=== PATIENT | female | born 1980 | race Caucasian/White ===

== ENCOUNTER 2017-07-01 09:48 | Observation (INO) | payer OTHER ==
[2017-07-01 10:31] LABS: % IMMATURE GRANULYOCYTES 1.6 % (0.0-1.1); ABSOLUTE IMMATURE GRANULOCYTES 0.09 10^3/uL (0.00-0.10); ABSOLUTE NRBC COUNT 0.04 10^3/uL (0-0.01); ADD DIFF? NO; ADD MORPH? NO; ADD SCAN? NO; ATYPICAL LYMPHOCYTE FLAG 0 (0-99); FRAGMENT RBC FLAG 0 (0-99); HEMATOCRIT 39.7 % (38.0-47.0); HEMOGLOBIN 14.1 g/dL (12.6-16.3); LEFT SHIFT FLG 10 (0-99); LIPEMIA HEMOLYSIS FLAG 90 (0-99); MEAN CELL HEMOGLOBIN 30.3 pg (27.9-34.1); MEAN CELL HEMOGLOBIN CONCENTR. 35.5 g/dL (32.4-36.7); MEAN CELL VOLUME 85.2 fL (81.5-99.8); NRBC-AUTO% 0.7 % (0.0-0.2); PLATELET CLUMPS FLAG 10 (0-99); RED BLOOD CELL COUNT 4.66 10^6/uL (4.18-5.33); RED CELL DISTRIBUTION WIDTH 11.7 % (11.5-15.2)
[2017-07-01 10:35] LABS: PLATELET COUNT 16 10^3/uL (150-400)
[2017-07-01 10:42] LABS: ALANINE AMINOTRANSFERASE 48 IU/L (9-52); ALBUMIN 3.6 g/dL (3.5-5.0); ALKALINE PHOSPHATASE 48 IU/L (38-126); ANION GAP 12 mEq/L (8-16); ASPARTATE AMINOTRANSFERASE 72 IU/L (14-46); BILIRUBIN,TOTAL 0.6 mg/dL (0.1-1.4); BILIRUBIN-CONJUGATED 0.1 mg/dL (0.0-0.5); BILIRUBIN-UNCONJUGATED 0.5 mg/dL (0.0-1.1); CALCIUM 9.5 mg/dL (8.5-10.4); CARBON DIOXIDE 25 mEq/l (22-31); CHLORIDE 105 mEq/L (97-110); CREATININE 0.9 mg/dL (0.6-1.0); GLOMERULAR FILTRATION RATE > 60; GLUCOSE 85 mg/dL (70-100); POTASSIUM 4.5 mEq/L (3.5-5.2); SODIUM 142 mEq/L (134-144)
[2017-07-01 10:54] LABS: PLATELET ESTIMATE DECREASED (ADEQ)
[2017-07-01] MEDS ORDERED: NS 1,000 ML IV ONE (11:07)
[2017-07-01] MEDS ORDERED: HYDROmorphONE/DILAUDID 1 MG/ML INJ IVP ONE (11:07)
[2017-07-01] MEDS ORDERED: DEXAMETHASONE 10 MG/ML VIAL IVP ONE (11:07)
[2017-07-01] MEDS ORDERED: ONDANSETRON 4 MG/2 ML VIAL IVP ONE (11:09)
--- NOTE | 2017-07-01 11:23 | EDPHY ---
H & P Time Seen by Provider: 07/01/17 10:19 HPI/ROS: HPI Headache, abdominal pain. 36-year-old female by private vehicle with significant other. She reports that she was exposed to a black mold several months ago. She has been undergoing "ozone " treatments to boost her immune system for this. She has been receiving IV infusion for what she call ozone therapy for the last couple of months. This also involves injections of glutathione and alpha lipoic acid. She also reports that she has a history of Heather-Rosales virus infection. She last had a CBC 2 months ago and this was apparently normal other than a leukocytosis according to her and her significant other. They have been treated down [facility] as well as here in [place] over the last month by a local physician. She states that she has had a worsening headache which she describes as global since Monday. She describes this as gradual in onset. No neck pain. She has not had a fever. She does complain of upper abdominal pain, worse on the left upper quadrant. Ongoing for 2-3 weeks. She has also had diarrhea and nausea with intermittent vomiting. Vomit described as nonbilious and nonbloody. ROS: Constitutional: No fever, no chills. As above. Eyes: No discharge. No changes in vision. ENT: No sore throat. No nasal congestion or rhinorrhea. Respiratory: No cough. No shortness of breath. Cardiac: No chest pain, no palpitations. Gastrointestinal: As above, no vomiting, no diarrhea. Genitourinary: No hematuria. No dysuria or increased frequency with urination. Musculoskeletal: No back pain. No neck pain. No myalgias or arthralgias. Skin: No rashes. Neurological: As above. No focal weakness or altered sensation. Past medical history: As above. Denies other significant past medical history. Social history: Nonsmoker. Here with her significant other. Denies alcohol. Physical Exam: General Appearance: Alert, she appears uncomfortable. She has a face mask covering her eyes. This patient is responding to questions appropriately and in full sentences. This patient appears well-hydrated and well-nourished. Eyes: Pupils equal and round and reactive to light, no pallor or injection. No lid edema, erythema or injection. She does have mild photophobia. No nystagmus. ENT, Mouth: Mucous membranes are moist. The pharyngeal tissues are unremarkable. No edema or swelling. No asymmetry suggestive of abscess. No erythema or exudates. Respiratory: There are no retractions, lungs are clear to auscultation with good air movement bilaterally. Cardiovascular: Regular rate and rhythm. No murmur. Gastrointestinal: Abdomen is soft with tenderness on palpation across the upper abdomen but worse over the left upper quadrant, no masses, bowel sounds normal. No focal tenderness at McBurney's point. No Geronimo sign. Neurological: Motor sensory function is grossly intact. Cranial nerves are normal. Gait is normal. Skin: Warm and dry, no rashes. Musculoskeletal: Neck is supple and nontender. No pain on flexion of the neck. Extremities are symmetrical. All joints range without pain or impingement. Psychiatric: No agitation. No depression. Database: EKG: Imaging: CT scan of head without contrast: Negative. Please see radiology report for further details. Results were discussed with staff radiologist Dr. James Lazar. CT scan of abdomen and pelvis with IV contrast: Negative except for some trace fluid around the gallbladder. No gallbladder wall thickening. Please see radiology report for further details. Results were discussed with staff radiologist Dr. James Lazar. Right upper quadrant ultrasound: Significant for probable acalculous cholecystitis. Some around the gallbladder, and gallbladder wall thickening. Procedures: Emergency department course: IV placed. Vital signs reviewed and are normal. She is afebrile. Initial platelet count is 16. She will be sent for CT imaging of the head to evaluate for potential bleeding as a source of her headache. She will also be sent for CT imaging of the abdomen and pelvis to evaluate for splenic pathology given her abdominal pain, history of Heather-Rsoales virus and low platelet count. She endorses. She was started on IV normal saline with 1 L to be given over the next hour. 11:50 a.m., spoke with precinct captain oncologist Dr. Appiah. Case discussed in detail. His feeling her thrombocytopenia is ITP until proven otherwise. He asked that we admit this patient to the hospitalist service and he will consult. 1:30 p.m., results of her diagnostic tests were discussed with her and her significant other. Plan for admission discussed. All of their questions were answered. 1:40 p.m., spoke with general surgeon, Dr. Bocanegra regarding this patient. Considering her thrombocytopenia, no plan for operative management for cholecystitis at this time. Antibiotics will be initiated by the hospitalist service under his direction. Likely Levaquin and metronidazole. This will also cover for possible urinary tract infection. 1:45 p.m., spoke with hospitalist. Case discussed in detail. Patient admitted to the hospitalist service in stable condition. She does not meet criteria for emergent platelet transfusion at this time. Differential Diagnosis: The differential diagnosis on this patient includes but is not limited to ITP, Heather-Rosales virus infection, thrombocytopenia, migraine headache, cholecystitis , urinary tract infection. Subarachnoid hemorrhage, meningitis, encephalitis, temporal arteritis, cavernous sinus thrombosis, sagittal sinus thrombosis, splenic sequestration, splenic rupture unlikely. This represents a partial list of diagnoses considered. These considerations are based on history, physical exam, past history, reassessment and diagnostic testing. Smoking Status: Never smoked Constitutional: Initial Vital Signs Temperature (C) 36.5 C 07/01/17 09:51 Heart Rate 72 07/01/17 09:51 Respiratory Rate 16 07/01/17 09:51 Blood Pressure 109/74 07/01/17 09:51 O2 Sat (%) 92 07/01/17 09:51 O2 Delivery Mode Room Air Allergies/Adverse Reactions: No Known Allergies Allergy (Unverified 07/01/17 09:55) Home Medications: Medication Instructions Recorded Herbals/Supplements -Info Only 1 ea PO DAILY 07/01/17 Ondansetron Odt [Zofran Odt 4 mg 4 mg PO Q4HRS PRN #40 tab 07/02/17 (*)] levOFLOXACIN [Levofloxacin] 750 mg PO DAILY #14 tablet 07/02/17 metroNIDAZOLE [Metronidazole] 500 mg PO Q8 #42 tablet 07/02/17 Medical Decision Making - Data Points Laboratory Results: Laboratory Results 07/01/17 10:20 07/01/17 10:20 Medications Given: Discontinued Medications Acetaminophen (Tylenol) 650 mg PO Q4HRS PRN PRN Reason: Pain, Mild/Fever, Can Take PO Stop: 12/28/17 14:03 Last Admin: 07/02/17 10:26 Dose: 650 mg Dexamethasone (Decadron Injection) 10 mg IVP EDNOW ONE Stop: 07/01/17 11:08 Last Admin: 07/01/17 11:32 Dose: Not Given Hydromorphone HCl (Dilaudid) 0.5 mg IVP EDNOW ONE Stop: 07/01/17 11:08 Last Admin: 07/01/17 11:38 Dose: Not Given Hydromorphone/Sodium Chloride (Hydromorphone) 0.2 mg IVP Q2HRS PRN PRN Reason: Pain, Severe Unable to Take PO Stop: 07/11/17 15:07 Last Admin: 07/02/17 08:00 Dose: 0.2 mg Sodium Chloride (Ns) 1,000 mls @ 0 mls/hr IV EDNOW ONE; Wide Open PRN Reason: Protocol Stop: 07/01/17 11:08 Last Admin: 07/01/17 11:29 Dose: 1,000 mls Dexamethasone 40 mg/ Dextrose 54 mls @ 216 mls/hr IV DAILY16 KATE Last Admin: 07/01/17 17:50 Dose: Not Given Ondansetron HCl (Zofran) 4 mg IVP EDNOW ONE Stop: 07/01/17 11:10 Last Admin: 07/01/17 11:29 Dose: 4 mg Ondansetron HCl (Zofran) 4 mg IVP Q4HRS PRN PRN Reason: Nausea/Vomiting, Can't Take PO Stop: 12/28/17 14:03 Last Admin: 07/02/17 10:36 Dose: 4 mg Departure - Departure Disposition: [facility] Acute Clinical Impression: Thrombocytopenia, Headache, Acalculous cholecystitis, Possible urinary tract infection Condition: Fair
[2017-07-01 11:27] LABS: INR 0.99 (0.83-1.16); PROTIME(PATIENT) 13.3 SEC (12.0-15.0)
[2017-07-01 11:28] LABS: APTT 37.7 SEC (23.0-38.0)
[2017-07-01] MEDS ORDERED: IOPAMIDOL (ISOVUE-300) 100 ML BTL ONE (11:59)
--- NOTE | 2017-07-01 12:06 | CPEKG ---
Heart Rate: 41 RR Interval: 1463 P-R Interval: 144 QRSD Interval: 72 QT Interval: 524 QTC Interval: 433 P [place]: -84 QRS [place]: 78 T Wave [place]: 64 EKG Severity - ABNORMAL ECG - EKG Impression: ECTOPIC ATRIAL BRADYCARDIA EKG Impression: ABNORMAL Q SUGGESTS ANTERIOR INFARCT EKG Impression: ABNORMAL T, CONSIDER ISCHEMIA, ANTERIOR LEADS Electronically Signed By: Kishore Matos 01-Jul-2017 15:22:51
[2017-07-01 13:23] LABS: COLOR LT. YELLOW; LEUKOCYTE ESTERASE,URINE TRACE (NEGATIVE)
[2017-07-01 13:24] LABS: NITRITE,URINE POSITIVE (NEGATIVE)
[2017-07-01 13:34] LABS: BACTERIA 2+ /hpf (NONE SEEN); MUCUS 1+ /lpf (NONE-1+); RBC,URINE NONE SEEN /hpf (0-3)
[2017-07-01] MEDS ORDERED: ONDANSETRON DISINTEGRATING 4 MG TAB PO PRN (14:04)
[2017-07-01] MEDS ORDERED: ACETAMINOPHEN 325 MG TAB PO PRN (14:04)
[2017-07-01] MEDS: HYDROmorphone HCL/NS/PF 0.4 MG/2 ML SYR IVP PRN ×2 (15:25→22:06)
[2017-07-01] MEDS: ONDANSETRON 4 MG/2 ML VIAL IVP PRN ×2 (15:25→22:05)
[2017-07-01] MEDS ORDERED: *PHM DO NOT USE-LORazepam 1 MG/ML IV NEWBORN SYR IV PRN (15:58)
[2017-07-01] MEDS ORDERED: DEXAMETHASONE 10 MG/ML VIAL IV SCH (16:00)
[2017-07-01] MEDS ORDERED: DEXAMETHASONE 40 MG in D5W 50 ML IV SCH (16:00)
--- NOTE | 2017-07-01 16:02 | GHP ---
[f rep st] HISTORY AND PHYSICAL DATE OF ADMISSION: 07/01/2017 CHIEF COMPLAINT: Headache with abdominal pain. HISTORY OF PRESENT ILLNESS: The patient is a 36-year-old female who presents to the emergency room t delores with complaints of abdominal pain as well as a severe headache. The patient has been undergoing infusion treatments for black mold exposure. She was having a good week this week until her infusio n which was 3 days ago. After her infusion, she became violently ill with nausea and vomiting, as we ll as diarrhea. She had an excruciating headache which she states is the worst headache of her life and became very dehydrated. She returned to her physician the following day and received IV hydratio n. Since that time, she has remained ill feeling and continues to have abdominal pain with headache. She had not had any lab work to coincide with her infusions. Her last lab work was obtained [facility] 2 months ago which she tells me was within normal limits. The patient is originally from [place], [place], but has been visiting [place] and received her last infusion here. She denies any fevers, sweats or night chills. She denies any neck pain. She denies any shortness o f breath or dyspnea. REVIEW OF SYSTEMS: A comprehensive 10-point review of systems is negative other than noted in the HP I. PAST MEDICAL HISTORY: Sohail's, Heather-Rosales virus. PAST SURGICAL HISTORY: None. SOCIAL HISTORY: The patient is a nonsmoker. She denies any alcohol or drugs. Again she originally resides in [place] and is visiting long-term in [place] with her significant other. PHYSICAL EXAMINATION: GENERAL: The patient is alert. VITAL SIGNS: Afebrile at 36.6, pulse is 43, respiratory rate is 18, blood pressure is 108/78. She is saturating 92% on room air. HEENT: Normoc ephalic, atraumatic. Mucosal membranes are moist. Pupils equal, round, reactive to light. NECK: S upple. LUNGS: Clear to auscultation bilaterally. No rhonchi or wheezes noted. CARDIOVASCULAR: Re gular rate and rhythm. No gallop or murmur appreciated. GASTROINTESTINAL: Abdomen: Bowel sounds a re positive, soft. Mildly tender to palpation. No guarding or rigidity appreciated. EXTREMITIES: Are within normal limits. There is no clubbing or cyanosis noted. SKIN: Without rashes or lesions. NEUROLOGIC: The patient is focally intact. HOME MEDICATIONS: 1. Herbal supplements. 2. Excedrin. FAMILY HISTORY: Notable for autoimmune disorders in her sister and mother. LABORATORY EVALUATION: Platelet count is 16, AST is elevated at 72. The patient's urine is abnormal . RADIOLOGICAL STUDIES: 1. CT of the abdomen notes fluid near the gallbladder as well as multiple hepatic lesions with possi ble hemangiomas. 2. Abdominal ultrasound also notes abnormal gallbladder wall thickening with 3 liver masses suggesti ng hemangiomas. 3. EKG was noted for bradycardia. 4. CT of the head with no acute findings. ASSESSMENT/PLAN: A 36-year-old female who presented to the emergency room with complaints of headach e and abdominal pain. 1. Abdominal pain. The etiology of this is unclear at this time. CT of the abdomen, as well as ult rasound, demonstrated abnormal gallbladder wall thickening as well as liver hemangiomas. An MRI has been ordered as well as a surgery consult. We will continue to evaluate the patient during this hosp italization. 2. Thrombocytopenia. Hematology has been consulted with regard to this condition. There is no need for transfusion at this time. We will follow this closely. 3. History of mold exposure. Again the patient is receiving some sort of infusion in the outpatient setting. I have recommended that she discontinue these infusions. We will attempt to obtain more i nformation regarding what the patient as being infused with. 4. Dysuria. Urine culture will be sent. The patient has not been initiated on antibiotic therapy a t this time. 5. Bradycardia. This is likely the patient's baseline; however, we will monitor closely. EKG is no amanda for bradycardia. DISPOSITION: The patient will be admitted to observation status. We will await further consultation s and radiological imaging. Her admission status can be adjusted as needed during this hospital course. /[id number]/MODL
[2017-07-01] MEDS ORDERED: LORazepam 2 MG/ML INJ IVP PRN (16:04)
[2017-07-01 17:18] LABS: GAMMA-GLUTAMYLTRANSFERASE 21 IU/L (12-43)
--- NOTE | 2017-07-01 22:08 | GCON ---
[f rep st] CONSULTATION REFERRING PHYSICIAN: Kishore Matos DO REASON FOR CONSULTATION: Abdominal pain. HISTORY OF PRESENT ILLNESS: This is a 36-year-old woman who presented to the emergency room after se veral days of abdominal pain and severe headache. The patient reports that she has been treated with infusion therapy for black mold over the last several months. Recently moved back to [place] from [place], [place], has been receiving [place]an, alpha lipoic acid, and glutathione injections. After an inf usion on Monday, the patient became violently ill, nausea, vomiting, diarrhea with a severe headac he relieved only by screaming. Her pain in her abdomen was located in the right upper quadrant witho ut radiation. The patient denies any other constitutional symptoms. She had recently been in [place] 2 weeks ago, but she was feeling better than she had been in the past until now. PAST MEDICAL HISTORY: Sohail's thyroiditis, Heather-Rosales virus. PAST SURGICAL HISTORY: None. REVIEW OF SYSTEMS: Significant for her ongoing mold and Sohail's, but otherwise negative. SOCIAL HISTORY: The patient denies alcohol, drug, or tobacco use. MEDICATIONS: Herbal medications, Excedrin for pain, as well as the infusions that she has been getti ng. FAMILY HISTORY: Notable for autoimmune disorders in her sister and mother. Otherwise, noncontributo ry. EXAM: GENERAL: Today, the patient is alert, oriented to person, place, and time. VITAL SIGNS: She is afebrile at 36.6, heart rate is 50, respiratory rate is 16, with a blood pressure 108/78, saturat ing adequately on room air. HEENT: Normocephalic, atraumatic. She has anicteric sclerae. NECK: S upple. No JVD, thyromegaly. LUNGS: Clear bilaterally. HEART: Regular heart tones, S1 and S2. AB DOMEN: Tender in the right upper quadrant with a mild Geronimo's sign. Pain on inspiration with palpa tion of that side. She has no scars. She has no hepatosplenomegaly. No guarding or rebound tendern ess. EXTREMITIES: 2+ over 2+ pulses radial and dorsalis pedis, posterior tibial. No peripheral tato ma. SKIN: No rashes. NEURO: Nonfocal neurologic exam. LABORATORY STUDIES: Significant for a platelet count of 16, AST is 72, which is above normal. Urina lysis shows elevated white blood cells, leukocytosis sites without nitrates. CT scan of the abdomen and pelvis shows hemangiomas of the liver, and she also has thickening of the gallbladder wall demonstrating possible acute cholecystitis. MRI is pending. I will discuss this wi th the hospital staff. ASSESSMENT: 1. A 36-year-old woman with abdominal pain, unclear etiology. Await MRI. Possible need for cholecy stectomy. Risks, benefits, and alternatives to this have been outlined to the patient and her signif icant other. The patient realizes that nonoperative care is also an option. She does not have leuko cytosis, so antibiotics are unwarranted. Bowel rest at this time and hydration would be used, as wel l as serial exams. 2. She has severe thrombocytopenia, possible idiopathic thrombocytopenic purpura. Hematology consul t is pending. 3. Dysuria. The patient does not have an elevation of white blood cell count. She is afebrile. PLAN: I will discuss this with her primary care team prior to any further intervention. The patient and her significant other seemed happy with this plan. /[id number]/MODL
--- NOTE | 2017-07-01 22:18 | GCON ---
[f rep st] CONSULTATION HEMATOLOGY/ONCOLOGY CONSULTATION DATE OF CONSULTATION: 07/01/2017 REASON FOR CONSULTATION: Thrombocytopenia. HISTORY OF PRESENT ILLNESS: The patient is a 36-year-old woman who reports that she has recurrent Heather Bar virus due to exposure to toxic black mold 2 years ago. She has been undergoing alternative therapies with ozone, alpha- lipoic acid, glutathione, coffee enemas. She is also on a gluten and dairy- free diet. She recently came out to the [facility] about 2 weeks ago and was feeling pretty well. She underwent an ozone and ALA injection on Monday and afterwards had vomiting, diarrhea, severe migraines, and associated chills. Over the last few days, she has had pain in the right upper quadrant and nausea. She denies any bruising or bleeding. Her last menstrual period was about 2 weeks ago and it was fairly typical, although she did have a lot of pain , which happens occasionally. She went to the emergency room for evaluation and on workup she was found to have a normal white count and hemoglobin. Her platelet count was 16,000 and a smear estimate will show that it was decreased. ALLERGIES: No known drug allergies. MEDICATIONS: Home medications include the multiples herbs and supplements and Excedrin. PAST MEDICAL HISTORY: Chronic illnesses: Really none. PAST SURGICAL HISTORY: Negative. SOCIAL HISTORY: She uses marijuana, but denies alcohol, IV drug abuse, or tobacco. FAMILY HISTORY: Both her parents are alive. No history of blood problems, although there is a family history of Sohail's. OBSTETRICAL HISTORY: She has been twice with 2 therapeutic abortions. REVIEW OF SYSTEMS: A 10-point review of systems was performed. Pertinent positives are per HPI, otherwise negative. PHYSICAL EXAM: VITAL SIGNS: Temperature is 36.6, pulse is 43, blood pressure is 108/78. GENERAL: She is mildly ill-appearing, but in no distress. HEENT: Sclerae nonicteric. Extraocular muscles are intact. Oral mucosa is without mucositis, petechiae, or purpura. LUNGS: Clear. CARDIAC: Heart rate is a little slow, but regular. ABDOMEN: Soft without splenomegaly. She is tender in the right upper quadrant. LYMPHATICS: Elizabeth exam reveals no peripheral lymphadenopathy. SKIN: Reveals no petechiae, purpura. NEUROLOGICAL: Grossly intact. IMAGIN. CT of her head showed no bleeds. 2. Ultrasound of her abdomen showed some hemangiomas in the liver and gallbladder wall thickening with pericholecystic fluid that could be related to acalculous cholecystitis. 3. Abdominal CT also showed the hemangiomas and pericholecystic fluid with possible cholecystitis. LABORATORY DATA: White count 5700 with an ANC of 2900, hemoglobin is 14.1, platelet count is 16,000. Coagulation studies are normal. Chemistries: AST is up slightly, ALT is normal, total bilirubin and alkaline phosphatase are normal. Beta-hCG is negative. UA showed positive nitrites and white cells and 2+ bacteria. Culture is pending. Heather Bar virus testing is pending. IMPRESSION: 1. Severe thrombocytopenia. 2. Possible acute cholecystitis. 3. Urinary tract infection. The most likely cause of her severe thrombocytopenia with an otherwise normal blood count is idiopathic thrombocytopenic purpura. It is unlikely due to disseminated intravascular coagulation or sepsis with normal coagulation studies and relatively normal vital signs. While there are medications that can cause isolated thrombocytopenia, they are relatively rare and generally resolve with stopping the drugs. She has been on some unusual medications, but none of them have been clearly associated with thrombocytopenia, but not entirely known. Although she is hoping to avoid surgery, she might need surgery in the next few days, so I have recommend we treat the thrombocytopenia , and we discussed the different options, including IVIG (which can treat it faster, but not put it into remission) versus steroids. Steroids may take a little bit longer, but more likely to put it and keep it in remission. We also discussed prednisone and dexamethasone. She did not have a very good experience with prednisone and liked the idea of dexamethasone being over a shorter time period. I will start her with dexamethasone 40 mg daily for 4 days. We will follow along with you while in the hospital. /[id number]/MODL MTDD
[2017-07-02] MEDS: HYDROmorphone HCL/NS/PF 0.4 MG/2 ML SYR IVP PRN ×2 (03:54→08:00)
[2017-07-02 04:12] LABS: % IMMATURE GRANULYOCYTES 1.5 % (0.0-1.1); ABSOLUTE IMMATURE GRANULOCYTES 0.12 10^3/uL (0.00-0.10); ABSOLUTE NRBC COUNT 0.04 10^3/uL (0-0.01); ADD DIFF? NO; ADD MORPH? NO; ADD SCAN? NO; ATYPICAL LYMPHOCYTE FLAG 30 (0-99); FRAGMENT RBC FLAG 0 (0-99); HEMATOCRIT 37.8 % (38.0-47.0); HEMOGLOBIN 13.4 g/dL (12.6-16.3); LEFT SHIFT FLG 10 (0-99); LIPEMIA HEMOLYSIS FLAG 90 (0-99); MEAN CELL HEMOGLOBIN 29.8 pg (27.9-34.1); MEAN CELL HEMOGLOBIN CONCENTR. 35.4 g/dL (32.4-36.7); MEAN CELL VOLUME 84.2 fL (81.5-99.8); MEAN PLATELET VOLUME 13.7 fL (8.7-11.7); NRBC-AUTO% 0.5 % (0.0-0.2); PLATELET CLUMPS FLAG 10 (0-99); RED BLOOD CELL COUNT 4.49 10^6/uL (4.18-5.33); RED CELL DISTRIBUTION WIDTH 11.4 % (11.5-15.2)
[2017-07-02 04:21] LABS: PLATELET COUNT 24 10^3/uL (150-400)
[2017-07-02 04:50] LABS: PLATELET ESTIMATE DECREASED (ADEQ)
[2017-07-02 07:31] VITALS: O2SAT 90
[2017-07-02 07:32] VITALS: BP 132/90; PULSE 114; RESP 18; TEMP 97.3
[2017-07-02] MEDS ORDERED: Herbals/Supplements -Info Only PO SCH (09:00)
--- NOTE | 2017-07-02 09:40 | SOAPPROG ---
SOAP Progress Note Assessment/Plan: Assessment/Plan: Cholecystitis with normal WBC and ITP Plt 24 this am Anticipate steroid per hematology Nausea better tolerated diet RRR CTA Abd soft nt Await on cholecystectomy decision for now. Treat ITP If symptomatic after optimization then lap madhu 07/02/17 09:38 Objective: Vital Signs Temp Pulse Resp BP Pulse Ox 36.3 C 114 H 18 132/90 H 90 L 07/02/17 07:30 07/02/17 07:30 07/02/17 07:30 07/02/17 07:30 07/02/17 07:28 Laboratory Results 07/02/17 03:48 07/01/17 07/02/17 07/03/17 05:59 05:59 05:59 Intake Total 1000 Balance 1000 PT 13.3 SEC (12.0-15.0) 07/01/17 10:10 INR 0.99 (0.83-1.16) 07/01/17 10:10 ICD10 Worksheet Patient Problems: Problems Problem Status Onset Headache Acute Thrombocytopenia Acute
[2017-07-02 09:48] LABS: ALBUMIN 3.3 g/dL (3.5-5.0); BILIRUBIN,TOTAL 0.6 mg/dL (0.1-1.4); BILIRUBIN-CONJUGATED 0.2 mg/dL (0.0-0.5); BILIRUBIN-UNCONJUGATED 0.4 mg/dL (0.0-1.1); TOTAL PROTEIN 5.6 g/dL (6.3-8.2)
[2017-07-02] MEDS: ONDANSETRON 4 MG/2 ML VIAL IVP PRN (10:36)
--- NOTE | 2017-07-02 11:37 | SOAPPROG ---
SOAP Progress Note Assessment/Plan: * Thrombocytopenia: suspect ITP. Counts a little better than yesterday without therapy and no bleeding. Surgery up in the air. Since she is asymptomatic, we can monitor the platelets and treat if drop or symptoms develop. Can also treat if needs surgery. These can be followed outpatient and if she were to go home, would want her back in our office this week to check counts. I prefer to treat with steroids since IVIg is temporary but the latter can be used for more immediate effect if she needs a procedure. * UTI?: asymptomatic. recommend repeating ua * Cholecystitis: followed by surgery conservatively right now; she may need surgery in near future. Subjective: Last night, patient refused steroids favoring IVIg. No therapy given yet. RUQ pain is better but the headache is worse. No bleeding. Objective: Vital Signs Temp Pulse Resp BP Pulse Ox 36.3 C 114 H 18 132/90 H 90 L 07/02/17 07:30 07/02/17 07:30 07/02/17 07:30 07/02/17 07:30 07/02/17 07:28 Laboratory Results 07/02/17 03:48 07/01/17 07/02/17 07/03/17 05:59 05:59 05:59 Intake Total 1000 Balance 1000 PT 13.3 SEC (12.0-15.0) 07/01/17 10:10 INR 0.99 (0.83-1.16) 07/01/17 10:10 Laboratory Tests 07/01/17 07/02/17 10:20 03:48 WBC 5.70 8.00 Hgb 14.1 13.4 Plt Count 16 L* 24 L* Physical Exam - Physical Exam General Appearance: no apparent distress EENT: pharynx normal Respiratory: lungs clear Cardiac/Chest: regular rate, rhythm Abdomen: No splenomegaly Lymphatic: no adenopathy ICD10 Worksheet Patient Problems: Problems Problem Status Onset Headache Acute Thrombocytopenia Acute
[2017-07-02 12:01] LABS: % SATURATION 28 % (20-55); TOTAL IRON BINDING CAPACITY 296 ug/dL (260-490)
--- NOTE | 2017-07-02 14:04 | ASDISCHSUM ---
Discharge Information Plan Status:Home with No Needs Medically Cleared to Leave:07/01/2017 Discharge Date:07/02/2017 02:02 PM CM D/C Disposition:Home, Routine, Self-Care ADT D/C Disposition:Home, Routine, Self-Care Projected Discharge Date:07/02/2017 02:00 PM Transportation at D/C:Friend Discharge Delay Reason: Follow-Up Date:07/02/2017 02:00 PM Discharge Slot:2 - 12:01 pm - 18:00 pm Final Diagnosis:AMES, Abdominal pain Placement Information Patient Contact Information Contact Name:TARYN Relationship:Other Address:[address] Work Phone: Jeni:BELIA Gao Phone: State/Zip Code:[place] [address] Email: Financial Information Financial Class:HMO and PPO Plans Primary Plan Desc:[employer] MARGIE DIEGO Primary Plan Number:[id number] Secondary Plan Desc: Secondary Plan Number: Assessment Information Case Management Discharge Plan Note Case Management Discharge Discharge Order Complete? Answers: Yes Patient to Obtain Answers: Independently Medications Transportation Arranged Answers: Family/Friends Transport will Pick (Date 07/02/2017 03:00 PM & Time) Discharge Comments Notes: Patient admitted for severe headache and abdominal pain. Visiting from [place] where she was exposed to black mold and receiving infusion tx's. Patient found to have Thrombocytopenia and cholecystitis. She has chosen not to have surgery here but to wait until she returns to [place]. No other needs at this time. Date Signed: 07/02/2017 02:03 PM Electronically Signed By:Loli Tipton LCSW Intervention Information Intervention Type:*Incorrect Registration Date of Service:07/01/2017 02:05 PM Patient Type:Observation Staff Member:MAYRA Mcguire Shelly Hours:0.25 Discipline: Severity:1 (0-1 Hours) Comment:Registered inpatient, written admit or suma inpatient status.
[2017-07-02 14:14] LABS: COLOR YELLOW; LEUKOCYTE ESTERASE,URINE TRACE (NEGATIVE); NITRITE,URINE POSITIVE (NEGATIVE)
[2017-07-02 14:24] LABS: BACTERIA 3+ /hpf (NONE SEEN); MUCUS TRACE /lpf (NONE-1+)
--- NOTE | 2017-07-02 16:43 | PDDCSUM ---
Discharge Summary Discharge Summary: DISCHARGE SUMMARY FOLLOW-UP ITEMS: Closely monitor patient's platelet count, liver panel Schedule outpatient cholecystectomy EBV and hepatitis-B virus serologies pending time discharge DATE OF ADMISSION: 07/01/2017 DATE OF DISCHARGE: 07/02/2017 DISCHARGE DIAGNOSES: 1. Acute acalculous cholecystitis 2. Suspected ITP 3. Possible urinary tract infection 4. Hemangioma CONSULTATIONS: General surgery by Dr. Sajan Bocanegra, Hematology by Dr. Etta Appiah PROCEDURES / IMAGING: MRCP demonstrating 3 hemangiomas, abdominal ultrasound and CT demonstrating gallbladder wall thickening, mg cholestatic fluid CHIEF COMPLAINT: Acute nausea, malaise, headache SUBJECTIVE: Patient is feeling better at time of discharge with less nausea, able to tolerate oral intake, able to control headache PHYSICAL EXAM ON DISCHARGE: Systolic blood pressure is 100-130, heart rate 50-100, afebrile overnight, satting on room air, alert awake oriented x3, chronically ill-appearing, abdomen is soft, nontender nondistended, negative Geronimo sign, bowel sounds are present LABS ON DISCHARGE: Platelet count 34056, hemoglobin 13.4, white blood count 8000, urine culture with greater than 100,000 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 Acute acalculous cholecystitis. Evidenced by gallbladder wall thickening and mg cholestatic fluid on ultrasound, no stone visualized. The patient's abdominal symptoms certainly could be attributable to this etiology, and she was seen consultation by Dr. Bocanegra. Dr. Bocanegra does believe that a cholecystectomy is indicated, but he would not recommend rushing the patient to surgery given her thrombocytopenia. He and I discussed the patient's situation , and we agreed that stabilizing her on antibiotics, improving her platelet count, and then reassessing her for surgery in the outpatient setting seems appropriate. At the present time, she seems very stable, and I have initiated her on a combination of levofloxacin and metronidazole for 2 weeks, and recommend that she follow up with Dr. Bocanegra prior to discontinuing antibiotics. It is unclear whether her use of IV and oral supplements are contributing to her cholecystitis, but her recent ketotic diet may certainly have contributed, and I recommended that she adjust her diet to a low-fat 1, to avoid worsening her cholecystitis. 2. Suspected ITP. Patient presented with a platelet count of 16,000, without a clearly identifiable precipitant. It seems unlikely that her thrombocytopenia is a direct result of her cholecystitis, and none of the supplements which she is currently receiving carry a direct correlation to ITP. The patient was seen in consultation by Dr. Appiah, and he recommended the standard of care which is steroids. The patient and her partner are concerned about initiating steroids as they believe that they have been doing a considerable amount of work on her "immune system" and they do not want to take an immunosuppressant at this time. Consequently, the patient did not receive any steroids during this hospitalization, and her platelet count did marginally improved to 24,000 on 07/02 follow-up labs. Given that her platelet count has demonstrated stability, she is safe to be discharged at this time with close outpatient follow-up and I have urged the patient to reconsider steroids moving forward. I recommended an outpatient CBC this week, with immediate follow-up at [facility], and she will consider IVIG versus steroids in the interim. 3. Hemangioma. MRCP demonstrated 3 areas of hemangioma, 1 of which was definitively benign, the other 2 require 3 month follow-up with either MRI or ultrasound. I suspect that these hemangiomas are secondary to her thrombocytopenia, and I have informed the patient regarding this possible connection. Despite this information, the patient does not want immediate treatment for her thrombocytopenia and she accepts all the risks thereof. 4. Possible urinary tract infection. Is unclear whether a urinary tract infection is contributing to the patient's presenting symptoms, but urine culture did demonstrate greater than 100,000 organisms, and in the setting of thrombocytopenia, ongoing symptoms, it would be reasonable to offer antibiotics. The levofloxacin currently being administered for the cholecystitis will also cover possible urinary tract infection. DISCHARGE MEDICATIONS: Please see official discharge medication reconciliation sheet in chart , levofloxacin 750 mg daily for 2 weeks, metronidazole 500 mg q.8 hours for 2 weeks, avoid nonsteroidal anti-inflammatory medications, avoid Tylenol, as needed Zofran prescribed. DISCHARGE INSTRUCTIONS: Please follow up with Dr. Etta Appiah this week and have repeat CBC and complete metabolic profile prior to that appointment, follow up with Dr. Bocanegra in 1 week.
[2017-07-03 09:27] LABS: ANTI EBNA Positive (Negative); ANTI VCA/IgG Positive (Negative); ANTI VCA/IgM Negative (Negative)
== END 2017-07-02 14:02 | disposition home or self-care (01) ==
LOC: INTOOBSV 13:10 → F1N 14:14
PROVIDERS: ADMIT Internal Medicine; ATTEND Internal Medicine
DX: K81.0 Acute cholecystitis (principal); D69.6 Thrombocytopenia, unspecified; D18.03 Hemangioma of intra-abdominal structures; R82.99 Other abnormal findings in urine; R10.11 Right upper quadrant pain; R11.0 Nausea; R51 Headache; R30.0 Dysuria; R19.7 Diarrhea, unspecified; R00.1 Bradycardia, unspecified
CPT/HCPCS: 70450; 74177; 74183; 76705; 93005; G0378; 86664-90; 86665-90; 86705-90; 96374; G0472; J1100; J1170; J2405; Q9967

== ENCOUNTER 2017-07-03 12:32 | Emergency (ER) | payer OTHER ==
[2017-07-03 12:39] VITALS: RESP 16; TEMP 97.3
[2017-07-03] MEDS ORDERED: NS 1,000 ML IV ONE (13:28)
--- NOTE | 2017-07-03 13:32 | EDPHY ---
H & P Stated Complaint: D/C'd yesterday;too weak at home;needs appt w/hem/onc for ITP? Time Seen by Provider: 07/03/17 13:06 HPI/ROS: CHIEF COMPLAINT: Generalized weakness HISTORY OF PRESENT ILLNESS: The patient is a 36-year-old female who is here with her significant other who is an integrated health doctor complaining of generalized weakness. She was admitted over the last 2 days and discharged yesterday for acalculous cholecystitis as well as ITP the and urinary tract infections. The patient had been getting ozone injections over the last couple of months after an exposure to black mold. This has been in an effort to boost her immune system. After her 1st with these injections here in [place] last week she became extremely weak and fatigued and had abdominal pain. No fever. Ultrasound of her abdomen revealed no of stones but thickened gallbladder wall. The whose decided to start her on Levaquin and Flagyl and doctor Daljit had planned outpatient cholecystectomy in the future. The patient was also seen by Dr. Appiah from the hematology and recommended to start on steroids however patient and partner refused because of their previous work to boost the patient' s immune system. Her platelet started to increase while she is in the hospital and she was discharged to follow up with outpatient therapy. She also had asymptomatic urinary tract infection although states now that she did have some bilateral flank pain a few days previously. She comes back today stating that she feels generally weak. She can walk but with much effort. No fever. No headache. No vomiting or diarrhea. No chest pain or shortness of breath. REVIEW OF SYSTEMS: Constitutional: Fatigued denies: chills, fever, recent illness, recent injury EENTM: denies: blurred vision, double vision, nose congestion Respiratory: denies: cough, shortness of breath Cardiac: denies: chest pain, irregular heart rate, lightheadedness, palpitations Gastrointestinal/Abdominal: denies: abdominal pain, diarrhea, nausea, vomiting, blood streaked stools Genitourinary: denies: dysuria, frequency, hematuria, pain Musculoskeletal: denies: joint pain, muscle pain Skin: denies: lesions, rash, jaundice, bruising Neurological: denies: headache, numbness, paresthesia, tingling, dizziness, weakness Hematologic/Lymphatic: denies: blood clots, easy bleeding, easy bruising Immunologic/allergic: denies: HIV/AIDS, transplant EXAM: GENERAL: Fatigued, eyes closed but easily woken HEAD: Atraumatic, normocephalic. EYES: Pupils equal round and reactive to light, extraocular movements intact, sclera anicteric, conjunctiva are normal. ENT: TMs normal, nares patent, oropharynx clear without exudates. Moist mucous membranes. NECK: Normal range of motion, supple without lymphadenopathy or JVD. LUNGS: Breath sounds clear to auscultation bilaterally and equal. No wheezes rales or rhonchi. HEART: Regular rate and rhythm without murmurs, rubs or gallops. ABDOMEN: Soft, nontender, normoactive bowel sounds. No guarding, no rebound. No masses appreciated. BACK: No CVA tenderness, no spinal tenderness, step-offs or deformities EXTREMITIES: Normal range of motion, no pitting or edema. No clubbing or cyanosis. NEUROLOGICAL: Cranial nerves II through XII grossly intact. Normal speech, normal gait. 5/5 strength, normal movement in all extremities, normal sensation PSYCH: Normal mood, normal affect. SKIN: Warm, dry, normal turgor, no visible rashes or lesions. Source: Patient Exam Limitations: No limitations - Personal History LMP (Females 10-55): 8-14 Days Ago Current Tetanus Diphtheria and Acellular Pertussis (TDAP): Yes Tetanus Vaccine Date: < 10 YEARS - Medical/Surgical History Hx Asthma: No Hx Chronic Respiratory Disease: No Hx Diabetes: No Hx Cardiac Disease: No Hx Renal Disease: No Hx Cirrhosis: No Hx Alcoholism: No Hx HIV/AIDS: No Hx Splenectomy or Spleen Trauma: No Other PMH: BLACK MOLD, ?ITP - Family History Significant Family History: No pertinent family hx - Social History Smoking Status: Never smoked Alcohol Use: None Drug Use: None Constitutional: Initial Vital Signs Temperature (C) 36.3 C 07/03/17 12:35 Heart Rate 101 H 07/03/17 12:35 Respiratory Rate 16 07/03/17 12:35 Blood Pressure 102/73 07/03/17 12:35 O2 Sat (%) 98 07/03/17 12:35 O2 Delivery Mode Room Air Allergies/Adverse Reactions: No Known Allergies Allergy (Verified 07/03/17 12:32) Home Medications: Medication Instructions Recorded Herbals/Supplements -Info Only 1 ea PO DAILY 07/01/17 Ondansetron Odt [Zofran Odt 4 mg 4 mg PO Q4HRS PRN #40 tab 07/02/17 (*)] levOFLOXACIN [Levofloxacin] 750 mg PO DAILY #14 tablet 07/02/17 metroNIDAZOLE [Metronidazole] 500 mg PO Q8 #42 tablet 07/02/17 Medical Decision Making - Diagnostics EKG Interpretation: An EKG obtained and was read and documented in trace view. Please see trace view for full reading and report. Sinus rhythm, no acute ischemic changes ED Course/Re-evaluation: The patient has no focal deficits or fevers. She is extremely fatigued and states that she can lay bed all day and does not have much appetite but cannot sleep. All the symptoms began soon after her ozone injections here in [place]. 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 3:20 p.m. the patient still feels extremely fatigued and states that she can hardly get out of bed. Her lab work is reassuring and improving agreed we went over it with her and her significant other. She is afebrile. I will admit her for generalized weakness. 3:30 p.m. I discussed the case with Dr. Ganga Castillo who will admit to the medical service. 3:50 p.m. the patient has decided that she would rather go home. She is refusing admission. She is encouraged by the improvement in her lab results. We discussed returning tomorrow for symptoms are not improving. Differential Diagnosis: Partial list of the Differential diagnosis considered include but were not limited to; generalized weakness, electrolyte abnormality, dehydration, malnourished and although unlikely based on the history and physical exam, I also considered infection, CVA, acute cord sees, lymphoma. - Data Points Laboratory Results: Laboratory Results 07/03/17 14:10 07/03/17 14:10 07/03/17 07/03/17 07/03/17 14:55 14:10 14:10 WBC RBC Hgb Hct MCV MCH MCHC RDW Plt Count MPV Neut % (Auto) Lymph % (Auto) Cloud % (Auto) Eos % (Auto) Baso % (Auto) Nucleat RBC Rel Count Absolute Neuts (auto) Absolute Lymphs (auto) Absolute Monos (auto) Absolute Eos (auto) Absolute Basos (auto) Absolute Nucleated RBC Immature Gran % Immature Gran # PT INR APTT VBG Lactic Acid Sodium 143 mEq/L mEq/L (134-144) Potassium 4.0 mEq/L mEq/L (3.5-5.2) Chloride 104 mEq/L mEq/L (97-110) Carbon Dioxide 25 mEq/l mEq/l (22-31) Anion Gap 14 mEq/L mEq/L (8-16) BUN 10 mg/dL mg/dL (7-23) Creatinine 1.0 mg/dL mg/dL (0.6-1.0) Estimated GFR > 60 Glucose 87 mg/dL mg/dL (70-100) Calcium 9.8 mg/dL mg/dL (8.5-10.4) Magnesium 1.7 mg/dL mg/dL (1.6-2.3) Total Bilirubin 0.5 mg/dL mg/dL (0.1-1.4) Conjugated Bilirubin 0.2 mg/dL mg/dL (0.0-0.5) Unconjugated Bilirubin 0.3 mg/dL mg/dL (0.0-1.1) AST 41 IU/L IU/L (14-46) ALT 45 IU/L IU/L (9-52) Alkaline Phosphatase 51 IU/L IU/L (38-126) Troponin I < 0.012 ng/mL ng/mL (0.000-0.034) Total Protein 6.6 g/dL g/dL (6.3-8.2) Albumin 4.0 g/dL g/dL (3.5-5.0) TSH 0.667 uIU/mL uIU/mL (0.465-4.680) Free T4 1.74 ng/dL ng/dL (0.59-2.19) Beta HCG, Qual NEGATIVE Urine Color PALE YELLOW Urine Appearance CLEAR Urine pH 7.0 (5.0-7.5) Ur Specific Elmore 1.006 (1.002-1.030) Urine Protein NEGATIVE (NEGATIVE) Urine Ketones TRACE H (NEGATIVE) Urine Blood NEGATIVE (NEGATIVE) Urine Nitrate NEGATIVE (NEGATIVE) Urine Bilirubin NEGATIVE (NEGATIVE) Urine Urobilinogen NEGATIVE EU EU (0.2-1.0) Ur Leukocyte Esterase TRACE H (NEGATIVE) Urine RBC NONE SEEN /hpf /hpf (0-3) Urine WBC 5-10 /hpf H /hpf (0-3) Ur Epithelial Cells TRACE /lpf /lpf (NONE-1+) Urine Bacteria 4+ /hpf H /hpf (NONE SEEN) Urine Glucose NEGATIVE (NEGATIVE) 07/03/17 07/03/17 07/03/17 14:10 14:10 14:10 WBC 7.42 10^3/uL 10^3/uL (3.80-9.50) RBC 5.05 10^6/uL 10^6/uL (4.18-5.33) Hgb 15.3 g/dL g/dL (12.6-16.3) Hct 42.4 % % (38.0-47.0) MCV 84.0 fL fL (81.5-99.8) MCH 30.3 pg pg (27.9-34.1) MCHC 36.1 g/dL g/dL (32.4-36.7) RDW 11.6 % % (11.5-15.2) Plt Count 72 10^3/uL L 10^3/uL (150-400) MPV 12.9 fL H fL (8.7-11.7) Neut % (Auto) 59.9 % % (39.3-74.2) Lymph % (Auto) 21.2 % % (15.0-45.0) Cloud % (Auto) 12.8 % % (4.5-13.0) Eos % (Auto) 4.2 % % (0.6-7.6) Baso % (Auto) 1.1 % % (0.3-1.7) Nucleat RBC Rel Count 0.3 % H % (0.0-0.2) Absolute Neuts (auto) 4.45 10^3/uL 10^3/uL (1.70-6.50) Absolute Lymphs (auto) 1.57 10^3/uL 10^3/uL (1.00-3.00) Absolute Monos (auto) 0.95 10^3/uL H 10^3/uL (0.30-0.80) Absolute Eos (auto) 0.31 10^3/uL 10^3/uL (0.03-0.40) Absolute Basos (auto) 0.08 10^3/uL 10^3/uL (0.02-0.10) Absolute Nucleated RBC 0.02 10^3/uL H 10^3/uL (0-0.01) Immature Gran % 0.8 % % (0.0-1.1) Immature Gran # 0.06 10^3/uL 10^3/uL (0.00-0.10) PT 13.6 SEC SEC (12.0-15.0) INR 1.02 (0.83-1.16) APTT 27.9 SEC SEC (23.0-38.0) VBG Lactic Acid 1.1 mmol/L mmol/L (0.7-2.1) Sodium Potassium Chloride Carbon Dioxide Anion Gap BUN Creatinine Estimated GFR Glucose Calcium Magnesium Total Bilirubin Conjugated Bilirubin Unconjugated Bilirubin AST ALT Alkaline Phosphatase Troponin I Total Protein Albumin TSH Free T4 Beta HCG, Qual Urine Color Urine Appearance Urine pH Ur Specific Elmore Urine Protein Urine Ketones Urine Blood Urine Nitrate Urine Bilirubin Urine Urobilinogen Ur Leukocyte Esterase Urine RBC Urine WBC Ur Epithelial Cells Urine Bacteria Urine Glucose Medications Given: Discontinued Medications Sodium Chloride (Ns) 1,000 mls @ 0 mls/hr IV EDNOW ONE; Wide Open PRN Reason: Protocol Stop: 07/03/17 13:29 Last Admin: 07/03/17 14:09 Dose: 1,000 mls Departure - Departure Disposition: Footosages Inpatient Acute Clinical Impression: Generalized weakness Condition: Fair Instructions: Weakness (ED) Referrals: NOT,SURE [Other] - As per Instructions
--- NOTE | 2017-07-03 14:19 | CPEKG ---
Heart Rate: 62 RR Interval: 968 P-R Interval: 160 QRSD Interval: 84 QT Interval: 432 QTC Interval: 439 P Kaiser: 76 QRS Kaiser: 77 T Wave Kaiser: 42 EKG Severity - NORMAL ECG - EKG Impression: SINUS RHYTHM Electronically Signed By: Fady Stoll 03-Jul-2017 14:24:48
[2017-07-03 14:21] LABS: % IMMATURE GRANULYOCYTES 0.8 % (0.0-1.1); ABSOLUTE IMMATURE GRANULOCYTES 0.06 10^3/uL (0.00-0.10); ABSOLUTE NRBC COUNT 0.02 10^3/uL (0-0.01); ADD DIFF? NO; ADD MORPH? NO; ADD SCAN? NO; ATYPICAL LYMPHOCYTE FLAG 20 (0-99); FRAGMENT RBC FLAG 40 (0-99); HEMATOCRIT 42.4 % (38.0-47.0); HEMOGLOBIN 15.3 g/dL (12.6-16.3); LEFT SHIFT FLG 0 (0-99); LIPEMIA HEMOLYSIS FLAG 90 (0-99); MEAN CELL HEMOGLOBIN 30.3 pg (27.9-34.1); MEAN CELL HEMOGLOBIN CONCENTR. 36.1 g/dL (32.4-36.7); MEAN PLATELET VOLUME 12.9 fL (8.7-11.7); NRBC-AUTO% 0.3 % (0.0-0.2); PLATELET CLUMPS FLAG 10 (0-99); PLATELET COUNT 72 10^3/uL (150-400); RED BLOOD CELL COUNT 5.05 10^6/uL (4.18-5.33); RED CELL DISTRIBUTION WIDTH 11.6 % (11.5-15.2)
[2017-07-03 14:32] LABS: INR 1.02 (0.83-1.16); PROTIME(PATIENT) 13.6 SEC (12.0-15.0)
[2017-07-03 14:33] LABS: ALANINE AMINOTRANSFERASE 45 IU/L (9-52); ALKALINE PHOSPHATASE 51 IU/L (38-126); ANION GAP 14 mEq/L (8-16); APTT 27.9 SEC (23.0-38.0); ASPARTATE AMINOTRANSFERASE 41 IU/L (14-46); BILIRUBIN,TOTAL 0.5 mg/dL (0.1-1.4); BILIRUBIN-CONJUGATED 0.2 mg/dL (0.0-0.5); BILIRUBIN-UNCONJUGATED 0.3 mg/dL (0.0-1.1); CALCIUM 9.8 mg/dL (8.5-10.4); CARBON DIOXIDE 25 mEq/l (22-31); CHLORIDE 104 mEq/L (97-110); GLOMERULAR FILTRATION RATE > 60; GLUCOSE 87 mg/dL (70-100); MAGNESIUM 1.7 mg/dL (1.6-2.3); SODIUM 143 mEq/L (134-144); TOTAL PROTEIN 6.6 g/dL (6.3-8.2)
[2017-07-03 14:45] LABS: TROPONIN I < 0.012 ng/mL (0.000-0.034)
[2017-07-03 15:07] LABS: COLOR PALE YELLOW; LEUKOCYTE ESTERASE,URINE TRACE (NEGATIVE); NITRITE,URINE NEGATIVE (NEGATIVE)
[2017-07-03 15:27] LABS: BACTERIA 4+ /hpf (NONE SEEN)
[2017-07-03 15:32] LABS: RBC,URINE NONE SEEN /hpf (0-3)
[2017-07-03 16:15] VITALS: BP 118/62; PULSE 89; O2SAT 94
== END 2017-07-03 16:14 | disposition home or self-care (01) ==
LOC: UNDOADMOB 15:33
DX: R53.1 Weakness (principal); E86.9 Volume depletion, unspecified

== ENCOUNTER 2017-07-07 05:35 | Emergency (ER) | payer OTHER ==
[2017-07-07 05:46] VITALS: TEMP 98.6
[2017-07-07 06:18] LABS: PLATELET COUNT 106 10^3/uL (150-400)
[2017-07-07] MEDS ORDERED: ONDANSETRON 4 MG/2 ML VIAL IVP ONE (06:28)
[2017-07-07] MEDS ORDERED: NS 1,000 ML IV ONE (06:28)
--- NOTE | 2017-07-07 06:57 | EDPHY ---
H & P Stated Complaint: ABD PAIN, HAS +GALBLADDER PROBLEXS BUT ALSO LOW PLATELETS Time Seen by Provider: 07/07/17 06:03 HPI/ROS: HPI The patient presents with right upper quadrant abdominal pain which has been present for the last week, though worse over the last several days. She describes the pain as a tightness which is getting progressively worse. It is usually worse in the mornings and was particularly severe today. Pain is worse when she lies flat. Is associated with nausea. This is worse after meals. She was diagnosed with acalculous cholecystitis last week when she was admitted to the hospital. She was found to have thrombocytopenia, possibly related to ITP. Decision was made to hold on cholecystectomy cause of this. She was started on antibiotics which she is taking. She was seen in the emergency department a few days ago for generalized weakness. She says has improved. She she is able to eat and is eating a low-fat diet. REVIEW OF SYSTEMS Constitutional: No fever, no chills. Eyes: No discharge. ENT: No sore throat. Cardiovascular: No chest pain, no palpitations. Respiratory: No cough, no shortness of breath. Gastrointestinal: See HPI Genitourinary: No hematuria. Musculoskeletal: No back pain. Skin: No rashes. Neurological: No headache. PMHx: Recent diagnosis of acalculous cholecystitis, urinary tract infection, possible ITP Soc Hx: Lives at home with her partner PHYSICAL General Appearance: Alert, no distress Eyes: Pupils equal and round no pallor or injection ENT, Mouth: Mucous membranes moist Respiratory: There are no retractions, lungs are clear to auscultation Cardiovascular: Regular rate and rhythm Gastrointestinal: Abdomen is soft with tenderness in the right upper quadrant, no masses, bowel sounds normal Neurological: A&O, moves all extremities Skin: Warm and dry, no rashes Musculoskeletal: Neck is supple non tender Extremities: symmetrical, full range of motion Psychiatric: Patient is oriented X 3, there is no agitation Source: Patient Exam Limitations: No limitations - Personal History LMP (Females 10-55): 22-28 Days Ago Current Tetanus/Diphtheria Vaccine: Yes Current Tetanus Diphtheria and Acellular Pertussis (TDAP): Yes Tetanus Vaccine Date: < 10 YEARS - Medical/Surgical History Hx Asthma: No Hx Chronic Respiratory Disease: No Hx Diabetes: No Hx Cardiac Disease: No Hx Renal Disease: No Hx Cirrhosis: No Hx Alcoholism: No Hx HIV/AIDS: No Hx Splenectomy or Spleen Trauma: No Other PMH: BLACK MOLD, ?ITP, GALBLADDER - Social History Smoking Status: Never smoked Constitutional: Initial Vital Signs Temperature (C) 37.0 C 07/07/17 05:43 Heart Rate 94 07/07/17 05:43 Respiratory Rate 18 07/07/17 05:43 Blood Pressure 106/76 07/07/17 05:43 O2 Sat (%) 91 L 07/07/17 05:43 O2 Delivery Mode Room Air Allergies/Adverse Reactions: No Known Allergies Allergy (Verified 07/07/17 05:46) Home Medications: Medication Instructions Recorded Herbals/Supplements -Info Only 1 ea PO DAILY 07/01/17 Ondansetron Odt [Zofran Odt 4 mg 4 mg PO Q4HRS PRN #40 tab 07/02/17 (*)] levOFLOXACIN [Levofloxacin] 750 mg PO DAILY #14 tablet 07/02/17 metroNIDAZOLE [Metronidazole] 500 mg PO Q8 #42 tablet 07/02/17 Medical Decision Making - Diagnostics Imaging Results: Right upper quadrant ultrasound demonstrates normal gallbladder with no stones and no gallbladder wall thickening, discussed with Dr. Lazar of Radiology. Imaging: Discussed imaging studies w/ order caller Radiologist, I viewed and interpreted images myself Differential Diagnosis: This is a 36-year-old female, recent diagnosis of acalculous cholecystitis managed on outpatient antibiotics because of thrombocytopenia, possibly related ITP, now returns with progressive worsening right upper quadrant pain associated with nausea, worse when laying flat and after meals. Her pain could possibly be related to cholecystitis, verses gastritis, less likely antibiotics side-effect. In the emergency department a basic labs were checked and are improving, platelet count is nearly normal. Liver tests reveal only mildly elevated AST, improved from previous. She was given IV fluids and Zofran for her nausea. Right upper quadrant ultrasound is actually unremarkable showing no evidence of cholecystitis. I discussed the lab test results and ultrasound results with the patient who was relieved to hear these findings. She was worried that her gallbladder was severely infected. She feels better after medication and would like to go home. - Data Points Laboratory Results: Laboratory Results 07/07/17 06:11 07/07/17 06:11 Medications Given: Discontinued Medications Sodium Chloride (Ns) 1,000 mls @ 0 mls/hr IV EDNOW ONE; Wide Open PRN Reason: Protocol Stop: 07/07/17 06:29 Last Admin: 07/07/17 06:48 Dose: 1,000 mls Ondansetron HCl (Zofran) 4 mg IVP EDNOW ONE Stop: 07/07/17 06:29 Last Admin: 07/07/17 06:49 Dose: 4 mg Departure - Departure Disposition: Home, Routine, Self-Care Clinical Impression: RUQ pain, Nausea Condition: Good Instructions: Acute Nausea and Vomiting (ED) Additional Instructions: Please return to the emergency department if your worse in any way. Referrals: NONE *PRIMARY CARE P,. [Primary Care Provider] - As per Instructions
[2017-07-07 08:26] VITALS: BP 104/60; PULSE 67; RESP 16; O2SAT 92
== END 2017-07-07 08:26 | disposition home or self-care (01) ==
DX: R10.11 Right upper quadrant pain (principal); R11.0 Nausea; E86.9 Volume depletion, unspecified
CPT/HCPCS: 96374; J2405